=== PATIENT | male | born 1950 | race Caucasian/White ===

== ENCOUNTER → 2018-09-06 | Outpatient (CLI) | payer MEDICARE ==
[~2018-09-06] MED LIST: ASPI81TA45 PO; IBUP-1223 PO; MULT-516 PO
[2018-09-06 14:13] LABS: BASOPHILS # (AUTO) 0.03 x10^3/uL (0-0.1); BASOPHILS % (AUTO) 1 % (0-1); EOSINOPHILS # (AUTO) 0.19 x10^3/uL (0-0.4); EOSINOPHILS % (AUTO) 3 % (1-7); LYMPHOCYTES # (AUTO) 1.97 x10^3/uL (1-3.4); LYMPHOCYTES % (AUTO) 31 % (22-44); MD NO; MEAN CORPUSCULAR HEMOGLOBIN 31.9 pg (27.5-34.5); MEAN CORPUSCULAR HGB CONC 33.1 g/dL (33.2-36.2); MEAN CORPUSCULAR VOLUME 96.4 fL (81-97); MEAN PLATELET VOLUME 7.1 fL (7.4-10.4); MONOCYTES # (AUTO) 0.51 x10^3/uL (0.2-0.8); MONOCYTES % (AUTO) 8 % (2-9); NEUTROPHILS # (AUTO) 3.56 x10^3/uL (1.8-6.8); NEUTROPHILS % (AUTO) 57 % (42-75); PLATELET COUNT 222 x10^3/uL (130-400); RED BLOOD COUNT 4.42 x10^6/uL (4.38-5.82); RED CELL DISTRIBUTION WIDTH 13.4 % (9.4-14.8)
[2018-09-06 14:21] LABS: INTERNATIONAL NORMALIZED RATIO 1.05 (0.93-1.1)
[2018-09-06 14:26] LABS: ANION GAP 5 mmol/L (5-15); CALCIUM 9.1 mg/dL (8.5-10.1); CHLORIDE 108 mmol/L (98-107)
[2018-09-06 14:29] LABS: CREATININE 0.99 mg/dL (0.7-1.3)
[2018-09-06 16:42] LABS: HEMOGLOBIN A1C 5.2 % (4.2-6.3)
== END | disposition home or self-care (01) ==
LOC: STAR 13:03
PROVIDERS: ATTEND Orthopaedic Surgery
DX: Z01.818 Encounter for other preprocedural examination (principal); M16.12 Unilateral primary osteoarthritis, left hip; R79.89 Other specified abnormal findings of blood chemistry
CPT/HCPCS: 36415; 80048; 83036; 85025; 85610; 85730; 87081; 93005

== ENCOUNTER 2018-10-01 06:36 | Inpatient (IN) | payer MEDICARE ==
[~2018-10-01] VITALS: Ht 198.1 cm; Wt 102.0 kg
[2018-10-01 17:50] VITALS: BP 110/70
== END 2018-10-01 18:15 | disposition home or self-care (01) | DRG 470 ==
LOC: ORIP 06:36 → 4NOR 11:25
PROVIDERS: ADMIT Orthopaedic Surgery; ATTEND Orthopaedic Surgery
PROC: 0SRB06A Replacement of Left Hip Joint with Oxidized Zirconium on Polyethylene Synthetic Substitute, Uncemented, Open Approach (ICD-10-PCS; principal; 2018-10-01)
DX: M16.12 Unilateral primary osteoarthritis, left hip (principal); Z86.14 Personal history of Methicillin resistant Staphylococcus aureus infection
CPT/HCPCS: 72170; 76000; C1713; G0378; J0171; J0690; J1100; J1885; J2250; J2405; J2704; J2710; J2795; J3010; J3370; J3480; C1776; J0330; J7050; J7120